=== PATIENT | female | born 1930 | race Two or more races ===

== ENCOUNTER 2017-10-29 15:08 | Emergency (ER) | payer MEDICARE, OTHER ==
[~2017-10-29] VITALS: Ht 147.3 cm; Wt 56.7 kg
[2017-10-29] MEDS ORDERED: Pantoprazole Inj IV ONE (15:15)
--- NOTE | 2017-10-29 15:22 | Emergency Room Report ---
History of Present Illness General Chief Complaint: Syncope Source: Patient, Family Member, EMS Present Illness HPI The patient's been passing black stools for the last few day. She vomited up some red material which the family felt was blood. She almost passed out while she was vomiting this afternoon. She feels weak at this time. She denies any pain. The patient has a functional dialysis fistula in her left arm however at this time she's being controlled with peritoneal dialysis nightly. She denies any fevers or chills. There is no abdominal pain. 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 Family state there has never been bleeding from this. No chest pain, dyspnea. She still makes urine. Allergies: Coded Allergies: PIPERACILLIN (Verified Allergy, Unknown, 10/29/17) TAZOBACTAM (Verified Allergy, Unknown, 10/29/17) Patient History Past Medical History: see triage record Past Surgical History: other - fistula and peritoneal dialysis catheter Social History: Denies: smoking, alcohol use Social History Narrative here with family Reviewed Nursing Documentation: PMH: Agreed; PSxH: Agreed Nursing Documentation-PMH Hx Hypertension: Yes Hx Diabetes: Yes Hx Cancer: Yes - Breast CA Hx Dialysis: Yes - Renal failure: Peritoneal dialysis, and old shunt to left upper arm. Review of Systems All Other Systems: negative except mentioned in HPI Physical Exam Vital Signs Date Time Temp Pulse Resp B/P (MAP) Pulse Ox O2 Delivery O2 Flow Rate FiO2 10/29/17 15:00 98.4 76 18 120/65 99 Room Air 98.4 Sp02 EP Interpretation: reviewed, normal General Appearance: well appearing, no apparent distress, GCS 15 Head: normocephalic Eyes: bilateral eye PERRL, bilateral eye conjunctivae pale ENT: moist mucus membranes Neck: supple Respiratory: lungs clear, normal breath sounds Cardiovascular #1: regular rate, rhythm Cardiovascular #2: 2+ radial (R), 2+ radial (L) - fistula with thrill Gastrointestinal: normal inspection, normal bowel sounds, non tender, no mass, non-distended, other - PD cath Musculoskeletal: back normal, gait/station normal, normal range of motion Neurologic: alert, oriented x3, grossly normal Psychiatric: mood/affect normal Skin: warm/dry, pallor, other - sallo Medical Decision Making Diagnostic Impression: Primary Impression: Near syncope Additional Impressions: Gastrointestinal bleed Qualified Codes: K92.1 - Melena ESRD (end stage renal disease) ER Course Patient presents with near syncope with h/o melena and possibly vomiting blood and ESRD. DDx: UGI bleed, gastritis, bleeding from KS, arrhythmia, AMI amongst others. Evaluation with EKG, CXR and labs. Will treat with protonix and zofran. Cardiac observation indicated. Holding on IV hydration. EKG without injury. CXR refused by family. Labs with low H/H and evidence of ESRD, no elevated potassium. Attempting to transfer patient. Discussed with Dr. Elam who wants transfer. Family refuse to wait for transfer and signed patient out AMA after being advised of risk of due to GI bleed. Laboratory Tests Test 10/29/17 15:25 White Blood Count 6.6 K/UL (4.8-10.8) Red Blood Count 3.57 M/UL (4.20-5.40) L Hemoglobin 10.9 G/DL (12.0-16.0) L Hematocrit 33.0 % (37.0-47.0) L Mean Corpuscular Volume 92 FL (80-99) Mean Corpuscular Hemoglobin 30.6 PG (27.0-31.0) Mean Corpuscular Hemoglobin Concent 33.1 G/DL (32.0-36.0) Red Cell Distribution Width 15.4 % (11.6-14.8) H Platelet Count 211 K/UL (150-450) Mean Platelet Volume 6.0 FL (6.5-10.1) L Neutrophils (%) (Auto) 58.3 % (45.0-75.0) Lymphocytes (%) (Auto) 27.6 % (20.0-45.0) Monocytes (%) (Auto) 8.6 % (1.0-10.0) Eosinophils (%) (Auto) 4.6 % (0.0-3.0) H Basophils (%) (Auto) 0.8 % (0.0-2.0) Prothrombin Time 11.2 SEC (9.30-11.50) Prothrombin Time INR 1.1 (0.9-1.1) PTT 25 SEC (23-33) Sodium Level 138 MMOL/L (136-145) Potassium Level 4.6 MMOL/L (3.5-5.1) Chloride Level 104 MMOL/L (98-107) Carbon Dioxide Level 24 MMOL/L (21-32) Anion Gap 10 mmol/L (5-15) Blood Urea Nitrogen 56 mg/dL (7-18) H Creatinine 6.5 MG/DL (0.55-1.30) H Estimate Glomerular Filtration Rate mL/min (>60) Glucose Level 141 MG/DL (74-106) H Lactic Acid Level 2.00 mmol/L (0.4-2.0) Calcium Level 8.4 MG/DL (8.5-10.1) L Total Bilirubin 0.4 MG/DL (0.2-1.0) Aspartate Amino Transferase (AST) 19 U/L (15-37) Alanine Aminotransferase (ALT) 18 U/L (12-78) Alkaline Phosphatase 92 U/L (46-116) Troponin I 0.000 ng/mL (0.000-0.056) Total Protein 6.8 G/DL (6.4-8.2) Albumin 2.4 G/DL (3.4-5.0) L Globulin 4.4 g/dL Albumin/Globulin Ratio 0.5 (1.0-2.7) L Lipase 202 U/L (73-393) EKG Diagnostic Results Rate: normal Rhythm: NSR ST Segments: no acute changes Rhythm Strip Diag. Results EP Interpretation: yes Rhythm: NSR, no PVC's, no ectopy Last Vital Signs Date Time Temp Pulse Resp B/P (MAP) Pulse Ox O2 Delivery O2 Flow Rate FiO2 10/29/17 18:16 98.4 85 18 118/62 99 Room Air 98.4 Status: improved Disposition: AGAINST MEDICAL ADVICE Condition: Serious Perez Marie M.D. Oct 29, 2017 15:22
[2017-10-29 15:57] LABS: INR 1.1 (0.9-1.1)
[2017-10-29 16:01] LABS: ANION GAP 10 mmol/L (5-15); BLOOD UREA NITROGEN 56 mg/dL (7-18); CALCIUM 8.4 MG/DL (8.5-10.1); CARBON DIOXIDE 24 MMOL/L (21-32); CHLORIDE 104 MMOL/L (98-107); CREATININE 6.5 MG/DL (0.55-1.30); POTASSIUM 4.6 MMOL/L (3.5-5.1); SODIUM 138 MMOL/L (136-145)
[2017-10-29 16:02] LABS: BASOPHILS % (AUTO) 0.8 % (0.0-2.0); EOSINOPHILS % (AUTO) 4.6 % (0.0-3.0); HEMOGLOBIN 10.9 G/DL (12.0-16.0); LYMPHOCYTES % (AUTO) 27.6 % (20.0-45.0); MEAN CORPUSCULAR VOLUME 92 FL (80-99); MONOCYTES % (AUTO) 8.6 % (1.0-10.0); NEUTROPHILS % (AUTO) 58.3 % (45.0-75.0); PLATELET COUNT 211 K/UL (150-450); RED BLOOD COUNT 3.57 M/UL (4.20-5.40); RED CELL DISTRIBUTION WIDTH 15.4 % (11.6-14.8); WHITE BLOOD COUNT 6.6 K/UL (4.8-10.8)
[2017-10-29 16:05] LABS: ALANINE AMINOTRANSFERASE 18 U/L (12-78); ALBUMIN 2.4 G/DL (3.4-5.0); ALBUMIN/GLOBULIN RATIO 0.5 (1.0-2.7); ALKALINE PHOSPHATASE 92 U/L (46-116); ASPARTATE AMINO TRANSFERASE 19 U/L (15-37); BILIRUBIN,TOTAL 0.4 MG/DL (0.2-1.0)
[2017-10-29 17:00] VITALS: BP 118/62
[2017-10-29 18:16] VITALS: BP 118/62
--- NOTE | 2017-11-01 14:15 | Cardiology Report ---
APPROVED REPORT EKG Measurement Heart [id number] Normal sinus rhythm Septal infarct, age undetermined Abnormal ECG
== END 2017-10-29 18:16 | disposition home or self-care (01) ==
LOC: EDBD 15:08 → EMR 15:53 → CANBEDREQ 18:04 → EMR 18:16
DX: R55 Syncope and collapse (principal); K92.2 Gastrointestinal hemorrhage, unspecified; I12.0 Hypertensive chronic kidney disease with stage 5 chronic kidney disease or end stage renal disease; N18.6 End stage renal disease; Z99.2 Dependence on renal dialysis; Z85.831 Personal history of malignant neoplasm of soft tissue; Z85.3 Personal history of malignant neoplasm of breast; Z88.1 Allergy status to other antibiotic agents
CPT/HCPCS: 36415; 80053; 83605; 83690; 84484; 85025; 85610; 85730; 86850; 86900; 86901; 93005; 96374; 96375; 99283; C9113; J2405